=== PATIENT | female | born 1935 | race Caucasian/White ===

== ENCOUNTER 2021-10-02 07:05 | Emergency (ER) | payer OTHER ==
[~2021-10-02] VITALS: Ht 160 cm; Wt 70.3 kg
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
[2021-10-02] MEDS ORDERED: IV NS 0.9% 1,000 ML BAG IV ONE (07:30)
[2021-10-02 08:20] LABS: BASOPHILS # (AUTO) 0.1 K/uL (0.0-0.2); BASOPHILS % (AUTO) 0.6 % (0.0-2.0); EOSINOPHILS % (AUTO) 3.3 % (0.0-6.0); HEMATOCRIT 42 % (33-45); HEMOGLOBIN 13.6 g/dL (11.5-14.8); LYMPHOCYTES # (AUTO) 1.1 K/uL (0.8-4.8); LYMPHOCYTES % (AUTO) 10.3 % (20.0-44.0); MEAN CORPUSCULAR HGB CONC 33 g/dl (31.0-36.0); MEAN CORPUSCULAR VOLUME 86 fL (82-100); MONOCYTES # (AUTO) 0.6 K/uL (0.1-1.30); MONOCYTES % (AUTO) 5.6 % (2.0-12.0); NEUTROPHILS # (AUTO) 8.3 K/uL (1.8-8.9); NEUTROPHILS % (AUTO) 80.2 % (43.0-81.0); PLATELET COUNT (AUTO) 207 K/uL (150-450); RED BLOOD CELL COUNT(AUTO) 4.86 MIL/uL (4.0-5.2); WHITE BLOOD COUNT (AUTO) 10.3 K/uL (4.3-11.0)
[2021-10-02 08:34] LABS: CALCIUM, SERUM 10.2 mg/dL (8.5-10.1); CARBON DIOXIDE 25 mmol/L (21-32); CHLORIDE 108 mmol/L (98-107); CREATININE 0.8 mg/dL (0.6-1.3); GLUCOSE 102 mg/dL (74-106); POTASSIUM 3.9 mmol/L (3.5-5.1); SODIUM SERUM 141 mmol/L (136-145); UREA NITROGEN, BLOOD 15 mg/dL (7-18)
--- NOTE | 2021-10-02 09:45 | NUR ---
CALLED [facility] [phone]
--- NOTE | 2021-10-02 09:52 | NUR ---
DR. FOLEY FROM [facility] SPEAKING WITH DR. MORTON.
--- NOTE | 2021-10-02 09:57 | NUR ---
PER DR MORTON, PT IS GOING TO [facility]
--- NOTE | 2021-10-02 13:08 | NUR ---
PT IS ACCEPTED AT [facility]. UNDER THE CARE OF DR. NEWMAN. IS GOING TO ROOM 9565-A . CALL [phone] FOR REPORT.
--- NOTE | 2021-10-02 13:16 | NUR ---
PT TRANSPORT VIA [facility]/ [facility]. ETA 1400
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
--- NOTE | 2021-10-02 13:41 | NUR ---
REPORT GIVEN TO [facility] NURSE MURPHY.
--- NOTE | 2021-10-02 14:31 | NUR ---
REPORT GIVEN TO [facility] EMT WITH UNIT #[id number], RUN [id number]. PATIENT WILL BE TRANSFERING TO [facility] VIA [facility]ALS WITHIN NORMAL LIMITS.
--- NOTE | 2021-10-02 14:37 | NUR ---
Patient discharged to home in stable condition. Written and verbal after care instructions given. Patient verbalizes understanding of instruction.
[2021-10-02 14:41] VITALS: BP 149/67
== END 2021-10-02 14:42 | disposition short-term general hospital (02) ==
LOC: ER 07:08
DX: R55 Syncope and collapse (principal); Z20.822 Contact with and (suspected) exposure to COVID-19; I44.0 Atrioventricular block, first degree; I10 Essential (primary) hypertension; R41.82 Altered mental status, unspecified; M51.36 Other intervertebral disc degeneration, lumbar region
CPT/HCPCS: 36415; 70450; 71045; 72125; 72131; 72170; 80048; 84484; 85025; 85730; 87426; 93005; 96360; 99285; C9803; J7030

== ENCOUNTER 2022-02-13 11:18 | Emergency (ER) | payer OTHER ==
[~2022-02-13] VITALS: Ht 152.4 cm; Wt 88.5 kg
--- NOTE | 2022-02-13 11:23 | NUR ---
DR JORDAN AT BEDSIDE
[2022-02-13] MEDS ORDERED: predniSONE 20 MG TABLET ONE (11:40)
[2022-02-13] MEDS ORDERED: predniSONE 20 MG TABLET PO ONE (12:00)
--- NOTE | 2022-02-13 12:00 | NUR ---
PREDNISONE 60MG GIVEN PO INDICATED. PT ABLE TO SWALLOW PILLS AND WATER.
[2022-02-13 12:12] LABS: BASOPHILS % (AUTO) 0.6 % (0.0-2.0); EOSINOPHILS % (AUTO) 3.6 % (0.0-6.0); HEMATOCRIT 39 % (33-45); HEMOGLOBIN 12.7 g/dL (11.5-14.8); LYMPHOCYTES # (AUTO) 1.2 K/uL (0.8-4.8); LYMPHOCYTES % (AUTO) 14.9 % (20.0-44.0); MEAN CORPUSCULAR HGB CONC 33 g/dl (31.0-36.0); MEAN CORPUSCULAR VOLUME 84 fL (82-100); MONOCYTES # (AUTO) 0.8 K/uL (0.1-1.30); NEUTROPHILS # (AUTO) 5.8 K/uL (1.8-8.9); NEUTROPHILS % (AUTO) 70.9 % (43.0-81.0); PLATELET COUNT (AUTO) 207 K/uL (150-450); RED BLOOD CELL COUNT(AUTO) 4.63 MIL/uL (4.0-5.2); WHITE BLOOD COUNT (AUTO) 8.2 K/uL (4.3-11.0)
[2022-02-13 12:33] LABS: CALCIUM, SERUM 9.8 mg/dL (8.5-10.1); POTASSIUM 3.7 mmol/L (3.5-5.1)
[2022-02-13] MEDS ORDERED: VALA100026 PO (14:07)
[2022-02-13] MEDS ORDERED: PRED20TA PO (14:07)
--- NOTE | 2022-02-13 14:40 | NUR ---
IV removed. Catheter intact and site benign. Pressure and 4x4 applied to site. No bleeding noted.
[2022-02-13 14:59] VITALS: BP 120/60
--- NOTE | 2022-02-13 15:00 | NUR ---
Patient discharged to home in stable condition, picked up by dtr and pt's . Written and verbal after care instructions given. Patient verbalizes understanding of instruction.
== END 2022-02-13 15:00 | disposition home or self-care (01) ==
LOC: ER 11:20
DX: G51.0 Bell's palsy (principal); F03.90 Unspecified dementia, unspecified severity, without behavioral disturbance, psychotic disturbance, mood disturbance, and anxiety; I10 Essential (primary) hypertension; E78.5 Hyperlipidemia, unspecified; Z79.899 Other long term (current) drug therapy
CPT/HCPCS: 99283; 85025; 80048; 36415; J7512